=== PATIENT | male | born 1970 | race Caucasian/White ===

== ENCOUNTER 2018-01-14 22:43 | Emergency (ER) | payer MEDICAID, SELFPAY ==
[2018-01-14 22:50] VITALS: BP 142/74; PULSE 86; RESP 16; TEMP 36.5; O2SAT 98
--- NOTE | 2018-01-14 22:57 | W.ED.GENAD ---
Discharge Plan Disposition Patient Disposition: HOME Condition: Stable Discharge Details Chief Complaint: GenMedical Clinical Impression: Medication requested Primary Care Provider: Arianne Sanchez ED Provider: Provider,Temporary Home Meds and New Rx's Prescriptions: Continue ondansetron [Zofran ODT] 4 MG tablet,disintegrating 4 mg PO Q8H PRN MDD 3 Qty: 30 RF: 0 fluticasone [Flonase Allergy Relief] 50 mcg/actuation [place],Suspension 1 spray INTRANASAL BID RF: 0 cefpodoxime 200 mg Tablet 200 mg PO BID Qty: 5 RF: 0 azithromycin 250 mg Tablet 250 mg PO DAILY Qty: 2 RF: 0 Discharge Instructions Additional Instructions: you should follow up with your primary care office within a week. You should discuss having testing done for COPD, chronic obstructive pulmonary disease, given your smoking history if you feel shortness of breath use your inhaler. If you have worsening shortness of breath despite this return to the emergency department. Medical Decision Making 47 yo male who states he has no chronic medical problems comes in with assistance in filling medications. He was doing work down in [employer] this week and became ill, was diagnosed with a pneumonia and admitted for 2 nights starting this past night and discharged this morning. He was given prescriptions for cefpodoxime and azithromycin and tried to fill them at [facility] earlier today in this area but was told because it was a [employer] script they couldn't fill it so he came here. He has mild wheezing at the apices, and has a 35 year smoking hx so I suspect he likely has copd. I am going to give him an inhaler for albuterol and a dose of dexamethasone. I will give him a dose of the azithro and cefpodxime, and 3 more days of the meds as prescribed. Return precautions given. Will have him f/u with his pcp's office within a week and have eval for copd Differential Diagnosis pna, copd HPI General Mode of arrival: ambulatory. Date/Time Provider Initiated Documentation: 01/14/18 22:44. Limitations to Documentation: no limitations. Information obtained by: patient. History of Present Illness 47 year old M presents to the emergency department with the chief complaint of cough, described as mild, with intensity rated at 3. Quality is described as aching, Patient reports no radiation. Patient started experiencing this day(s) (3) and it has been constant. No relieving factors improve symptom(s), No exacerbating factors reported . Related Data Home Medications Medication Instructions Recorded Confirmed ondansetron [Zofran ODT] 4 mg PO Q8H PRN #30 tab.sl MDD 3 12/20/16 01/14/18 azithromycin 250 mg PO DAILY #2 tab 01/14/18 cefpodoxime 200 mg PO BID #5 tab 01/14/18 fluticasone [Flonase Allergy 1 spray INTRANASAL BID 01/14/18 01/14/18 Relief] Previous Rx's Medication Instructions Recorded azithromycin 250 mg PO DAILY #2 tab 01/14/18 cefpodoxime 200 mg PO BID #5 tab 01/14/18 Allergies Allergy/AdvReac Type Severity Reaction Status Date / Time codeine AdvReac Unknown GI, Unverified 01/14/18 22:59 dizziness oxycodone AdvReac Unknown tight Unverified 01/14/18 22:59 chest tramadol AdvReac Unknown Dizziness Unverified 01/14/18 22:59 Review of Systems Review of Systems All systems reviewed & are unremarkable except as noted in HPI and below Constitutional Denies chills and Denies weakness Eyes Denies loss of vision ENT Denies change in voice Cardiovascular Denies chest pain Respiratory Reports cough Gastrointestinal Denies abdominal pain, Denies nausea and Denies vomiting Genitourinary Denies dysuria Musculoskeletal Denies joint swelling Integumentary/Breasts Denies rash Neurologic Denies loss of vision and Denies weakness Psychiatric Denies depression Endocrine Denies cold intolerance and Denies heat intolerance Allergic/Immunologic Reports urticaria PFSH Family History Mother No problems noted. Father Substance abuse Grandfather Substance abuse Grandmother Diabetes Cerebrovascular accident Maternal Uncle Diabetes Maternal Aunt Diabetes Myocardial infarction Other Heart disease Social History Smoking/Tobacco Use Status: Current every day Surgical History Foraminectomy Spinal cord stimulator (12/12/14) steroid injection L5-S1 (08/13/14) Exam Const General: no acute distress Orientation: alert HENMT Head: normal to inspection Ears: external ears normal General nose exam: external nose normal Mouth: moist mucous membranes Eyes General: appearance normal, both eyes and all related structures Neck Neck: normal visual inspection Resp Effort & Inspection: normal respiratory effort, able to speak in complete sentences and audible wheezes (mild expiratory wheezing at the apices bilaterally) Cardio Rate: regular rate Skin General skin exam: no rashes or lesions noted Neuro General: alert and oriented x3 Extrem General: normal to inspection Psych Mental Status: mental status grossly normal
[2018-01-14 23:03] VITALS: RESP 16
[2018-01-14] MEDS: Inhaler, Assist Device 1 EACH MC (23:23)
[2018-01-14] MEDS: Cefpodoxime 200 MG TAB PO (23:23)
[2018-01-14] MEDS: Azithromycin 250 MG TAB PO (23:23)
[2018-01-14] MEDS: Albuterol HFA 8 GM 60 PUFF INH IH (23:23)
[2018-01-14] MEDS: Dexamethasone 10 MG/ML VIAL PO (23:23)
--- NOTE | 2018-01-16 08:33 | CMPROGNOTE_ITS ---
Care Management Progress Note 01/16/18-Pt seen on 01/14/[address] Kendell Juarez with having troubles filling his RX post hospital admission in [facility]. Pt has found to have wheezes. Request f/u within one week faxed to [facility] as Dr. Arianne Sanchez is Pt's PCP.
== END 2018-01-14 23:21 | disposition home or self-care (01) ==
PROVIDERS: PCP Internal Medicine; Visit Provider Emergency Medicine
DX: J18.9 Pneumonia, unspecified organism (principal); F17.210 Nicotine dependence, cigarettes, uncomplicated
CPT/HCPCS: 99283; J1100

== ENCOUNTER 2018-03-28 00:48 | Outpatient (CLI) | payer MEDICAID, SELFPAY ==
--- NOTE | 2018-03-28 09:08 | DI.RAD_ITS ---
SYMPTOM/DIAGNOSIS: F/U ABNORMAL CHEST X-RAY IN [place]. J18.9 PNEUMONIA CHEST X-RAY: PA and lateral. Comparison examination is 08/09/15. The prior examination from [facility] dated 01/12/18 is not available at this time for direct comparison. Should they become available an addendum will be issued. FINDINGS: The heart is normal in size. The lungs are clear. The mediastinal structures and pleura appear intact. CONCLUSION: Normal chest.
== END 2018-03-28 01:08 ==
PROVIDERS: PCP Internal Medicine; Visit Provider Nurse Practitioner Adult Health
DX: J18.9 Pneumonia, unspecified organism (principal)
CPT/HCPCS: 71046

== ENCOUNTER 2018-11-08 13:30 | Outpatient (CLI) | payer MEDICAID, SELFPAY ==
--- NOTE | 2018-11-08 14:00 | DI.RAD_ITS ---
SYMPTOMS/DIAGNOSIS: COUGH X 3 WKS, NOT BETTER, ? PNEUMONIA VS OTHER, F17.200, NICOTINE DEPENDENCE PA AND LATERAL CHEST: The heart is normal in size. The lungs are clear. The mediastinal structures and pleura appear intact. CONCLUSION: Normal chest. No evidence of acute cardiopulmonary disease.
== END 2018-11-08 13:50 ==
PROVIDERS: PCP Internal Medicine; Visit Provider Nurse Practitioner Family
DX: R05 Cough (principal); F17.200 Nicotine dependence, unspecified, uncomplicated
CPT/HCPCS: 71046

== ENCOUNTER 2019-03-02 08:38 | Day surgery (SDC) | payer SELFPAY ==
[2019-03-02 08:51] VITALS: BP 132/78; PULSE 75; RESP 16; TEMP 36.5; O2SAT 96
--- NOTE | 2019-03-02 08:54 | W.PM.HP.N ---
Date of service: 03/02/19 Time of Service: 08:54 Assessment and Plan Assessment and plan (1) Colon cancer screening: Status: Acute Assessment and plan: I advised colonoscopy. The procedure was described including the risks of perforation with need for surgery or bleeding. Prep instructions discussed. Patient agrees to proceed. History of Present Illness Narrative: 48 y/o male with a history of back pain presents for his first colonoscopy screening pre-op. He denies a family history of colon cancer. He denies any changes in bowel habits reporting intermittent constipation. Denies bloody or black tarry stools, abdominal pain, diarrhea. He denies constitutional symptoms. Denies use of marijuana or any other recreational or illegal drugs. He denies chest pain, palpitations, dyspnea or dyspnea with exertion. 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 He denies prior history or family history of adverse reactions or complications with anesthesia. He denies having any implanted metal in his body. Review of Systems All systems reviewed & are unremarkable except as noted in HPI and below PFSH Social History Smoking/Tobacco Use Status: Current every day Tobacco Type: cigarettes Tobacco: How many years used: 33 Quit status: not considering quitting Alcohol Intake: current Alcohol Intake frequency: holidays/special occasions only Drug use: Never Substance use type: does not use Adopted: No Housing: house Number of Children: 2 number of grandchildren: 3 Communication Needs: Corrective Lenses Do you need help understanding health information?: Never current occupation: self employed - cleaning business What type of physical activity do you participate in: none Seatbelt use: always Drive intox or ride w/intox local hazmat driver: No Water heater temp set <120 deg: Yes Working smoke detector in home: Yes Fire extinguisher in home: Yes Carbon monox detector in home: Yes Do you feel safe at home: Yes Do you feel safe in your relationship?: Yes Meds Home Medications and Allergies Home Medications Medication Instructions Recorded Confirmed Type ondansetron 8 mg disintegrating 8 mg PO Q8H #20 tab 11/21/18 02/28/19 Rx tablet Allergies Allergy/AdvReac Type Severity Reaction Status Date / Time oxycodone AdvReac Unknown tight Verified 03/02/19 08:50 chest Exam Const General: healthy appearing and not in acute distress Nutritional Appearance: well nourished Orientation: oriented x3 [facility] Head: normal to inspection Eyes Sclera: sclerae normal Pupils: PERRL Neck Neck: no lymphadenopathy Thyroid: thyroid normal Carotids: no bruits Resp Effort & Inspection: normal respiratory effort Auscultation: clear to auscultation bilaterally and no wheezes Cardio Rate: regular rate Rhythm: regular rhythm GI Inspection: non-distended Palpation: soft, no hepatosplenomegaly, no hernias and nontender Skin General skin exam: no rashes or lesions noted Neuro General: alert Cognition: normal cognition Extrem General: normal to inspection Psych Affect: normal affect Attitude: cooperative Results Last Vital Signs Temp 97.7 F 03/02/19 08:51 Pulse 75 03/02/19 08:51 Resp 16 03/02/19 08:51 BP 132/78 03/02/19 08:51 Pulse Ox 96 03/02/19 08:51
--- NOTE | 2019-03-02 08:56 | W.PM.DSUDISC ---
Discharge Plan Disposition Patient Disposition: HOME Condition: Good Discharge Details Reason For Visit: Colonoscopy Attending Provider: Carlie Briscoe Primary Care Provider: Arianne Sanchez Home Meds and New Rx's Prescriptions: No Action ondansetron 8 mg tablet,disintegrating 8 mg PO Q8H Qty: 20 RF: 0 Discharge Instructions Additional Instructions: Findings: Two small polyps were removed. My office will contact you with biopsy results. Follow up: Plan for a colonoscopy in 5 years. Please call if you develop: fevers >101.5 Nausea or Vomiting Abdominal pain that is not transient DAY SURGERY UNIT POST COLONOSCOPY INSTRUCTIONS 1. Because there will be medication in your system for the next 24 hours, you may feel a little sleepy. Your coordination will be affected. Therefore: a. Do not drive or operate dangerous equipment for 24 hours. b. Do not drink alcohol beverages for 24 hours (not even beer). c. Plan to go home and rest for the day. 2. Generally there are no restrictions on your activity after a day or so has gone by, but you may feel a bit fatigued for a few days. 3 After you arrive home you may have a light meal and return to a normal diet as you can tolerate it without feeling sick to your stomach. 4. After surgery, you may feel pain or discomfort. This should be only transient, but if it persists please contact your doctor. 5. If there are any questions regarding the findings of your procedure, please feel free to contact your doctor. 6. If you are unable to contact your doctor with a problem, contact the hospital at [phone]. 7. Continue all your regular medications unless directed otherwise. I understand the above instructions and have no questions. Signature of Patient or Responsible Adult Escort Date/Time Name of Responsible Adult Escort Signature of Nurse Date/Time Activity:: Activity as Tolerated Diet:: As Tolerated Discharge Orders Discharge Orders: Discharge Order (Routine); Ordered 03/02/19 Ordered By: Carlie Briscoe DS: Diagnosis Discharge Diagnosis (1) Colon cancer screening: Status: Acute (2) Colon polyps: Status: Acute
[2019-03-02] MEDS: Lactated Ringers 1,000 ML 80 ML IV (09:11)
--- NOTE | 2019-03-02 10:00 | BOWEL_PTH ---
PATIENT: Adam Montgomery LOC: [facility] U#:[id number] AGE/SX: 48/M ROOM: RE03/02/[address]: Carlie Briscoe MD : 1970 BED: DIS: 03/02/2019 SPEC #: [id number] RECD: 03/02/19 12:51 STATUS: SHER REQ #: [id number] AVNESSA: 03/02/19 10:[address]: Carlie Briscoe DEPT: Surgical Specimen RECD BY: Gena Stroud ENTERED: 03/02/19 12:51 SP TYPE: Bowel OTHR DR: Arianne Sanchez MD Tissues: 1 - BIOPSY BOWEL Procedures: GROSS AND MICRO LEVEL 4 Comments: [id number]
[2019-03-02 10:42] VITALS: BP 112/70; PULSE 63; RESP 16; TEMP 36.3; O2SAT 95
--- NOTE | 2019-03-02 11:31 | COLE_ITS ---
DATE OF PROCEDURE: March 02, 2019 PREOPERATIVE DIAGNOSIS: Screening. POSTOPERATIVE DIAGNOSIS: Colon polyps. PROCEDURE: Colonoscopy with cold forceps polypectomy. SURGEON: Carlie Briscoe M.D. ANESTHESIA: General. INDICATIONS: This is a 48-year-old man who presents for his first screening colonoscopy. He is asymptomatic and has no family history of colon cancer. He does note occasional symptoms from hemorrhoids. PROCEDURE: He was placed in the left Pack position. Propofol was titrated to sedation. Digital rectal examination revealed no abnormalities. The scope was advanced to the cecum without difficulty. The ileocecal valve and appendiceal orifice were clearly identified. His prep was excellent. The scope was slowly withdrawn with no abnormalities seen within the ascending, transverse or descending colon. In the sigmoid region he had two diminutive polyps near each other that were removed with the cold forceps and sent together in the same specimen container. The remainder of the sigmoid colon and rectum were normal, including on retroflex view. He tolerated the procedure well and was stable to recovery. If the polyps are adenomatous he will need a follow-up colonoscopy again in five years. cc: Arianne Sanchez M.D.
== END 2019-03-02 11:11 | disposition home or self-care (01) ==
PROVIDERS: PCP Internal Medicine; Visit Provider Surgery
PROC: 0DJD8ZZ Inspection of Lower Intestinal Tract, Via Natural or Artificial Opening Endoscopic (ICD-10-PCS; CPT 45378; principal; 2019-03-02 09:45)
DX: Z12.11 Encounter for screening for malignant neoplasm of colon (principal); D12.5 Benign neoplasm of sigmoid colon
CPT/HCPCS: 45380; 88305; NC

== ENCOUNTER 2021-09-19 23:04 | Emergency (ER) | payer MEDICAID, SELFPAY ==
--- NOTE | 2021-09-19 23:00 | DI.RAD_ITS ---
Exam(s) XR KNEE LT 3V AP,LAT,J[place]SE[place] EXAM: XR KNEE LT 3V AP,LAT,[place] CLINICAL HISTORY: left knee pain, mild proximal swelling. TECHNIQUE: 2D digital imaging was performed of the left knee. Three images were obtained. AP, late ral and PA tunnel views were obtained. COMPARISON: CR XR CHEST 2V PA LATERAL from 11/08/2018 FINDINGS: BONES: No acute fracture is present. No bony destructive lesion is seen. JOINTS: The knee is normally aligned. No joint effusion is seen. SOFT TISSUE: Normal. IMPRESSION: Normal radiographs of the left knee. DATA REPOSITORY: RADIATION DOSE DELIVERED:
[2021-09-19 23:10] VITALS: BP 204/84; PULSE 66; RESP 18; TEMP 36.7; O2SAT 98
--- NOTE | 2021-09-19 23:15 | ED.GENADUL_ITS ---
Discharge Plan Disposition Patient Disposition: HOME Condition: Good Discharge Details Clinical Impression: Acute knee pain, Suprapatellar bursitis Primary Care Provider: Arianne Sanchez ED Provider: Tony Schrader Home Meds and New Rx's Prescriptions: No Action No Known Home Meds Discharge Instructions Instructions: Knee Bursitis (ED) Additional Instructions: At this time your x-ray shows no evidence of fracture. Please continue to take Tylenol and Motrin as needed for pain. Keep the knee wrapped in an Conrad wrap to help diminish the swelling. Ice the knee frequently throughout the day. Please decrease your weightbearing activity on the knee by using her crutches over the next week. Please apply the topical NSAID cream Voltaren gel to the area. This can be purchased [id number]. Apply it 2-3 times per day. If you have persistent pain after 1 to 2 weeks of this therapy, you may need further evaluation with an MRI. If you notice any worsening of your symptoms, or any new symptoms such as vomiting, diarrhea, fever, chills, shortness of breath, chest pain, numbness, weakness, or fainting , please return immediately to the emergency department for reevaluation. Please follow up with your primary care provider as soon as possible for reassessment and reevaluation. As always, it was a pleasure participating in your medical care today. Referrals: Arianne Sanchez MD [Primary Care Provider] - Discharge Data Discharge Date/Time-TO BE ENTERED AT DEPARTURE: 09/20/21 00:23 Medical Decision Making Pleasant 50-year-old male with a past medical history of hypertension presents today for left knee pain. Symptoms have been present for the last 1 to 2 weeks. He has noted some mild swelling over the last week. He has been using a knee brace intermittently without any significant improvement. Patient states that there is no pain when sitting or lying, but when he excessively bends the knee or bears weight he develops mild pain, particularly on the suprapatellar and lateral aspect. He denies any numbness or tingling. He does admit to similar symptoms in the past on the right knee. He denies any previous injury. No complaints at this time. Exam demonstrates mild swelling over the suprapatellar region. No redness or suggest cellulitis or infection. Edema and swelling is minimal. Symptoms appearing consistent with septic arthritis. No edema of the mid to lower knee. No calf tenderness or posterior popliteal tenderness. Differential is highest for suprapatellar bursitis. We will get x-ray to evaluate for evidence of osseous injury. Will monitor closely and reassess. X-ray negative for any acute findings. Suspect mild bursitis. Will recommend NSAIDs, Conrad wrap, decreased weightbearing, and topical Voltaren gel for treatment. Recommend further MRI or imaging if symptoms persist. I have extensively reviewed the treatment plan and discharge instructions with the patient. I have addressed all patient concerns at this time. The patient was made aware of what symptoms to monitor for that would warrant a return to the emergency department. Discussed the plan with the patient, they demonstrate verbal understanding and agreement with our assessment and plan at this time. The documentation in this chart was dictated using [employer] dictation software. Please excuse any dictation errors. FINDINGS: Bones/joints: No acute fracture or subluxation. Soft tissues: No significant joint effusion. IMPRESSION: No acute bony pathology. Thank you for allowing us to participate in the care of your patient. Dictated and Authenticated by: Lizzie Garcia MD 09/19/2021 11:39 PM Eastern Time ([place] & [place]) HPI General Date/Time Provider Initiated Documentation: 09/19/21 23:05 . HPI Narrative: Pleasant 50-year-old male with a past medical history of hypertension presents today for left knee pain. Symptoms have been present for the last 1 to 2 weeks. He has noted some mild swelling over the last week. He has been using a knee brace intermittently without any significant improvement. Patient states that there is no pain when sitting or lying, but when he excessively bends the knee or bears weight he develops mild pain, particularly on the suprapatellar and lateral aspect. He denies any numbness or tingling. He does admit to similar symptoms in the past on the right knee. He denies any previous injury. No complaints at this time. Related Data Home Medications Medication Instructions Recorded Confirmed Unknown [No Known Home Meds] 09/19/21 09/19/21 Allergies Allergy/AdvReac Type Severity Reaction Status Date / Time oxycodone AdvReac Unknown tight Verified 09/19/21 23:14 chest General Stated Complaint: Orthopedic WANDA: 4 Review of Systems All systems reviewed & are unremarkable except as noted in HPI and below PFSH All Active Problems (Updated 09/20/21 @ 00:03 by Tony Schrader DO) Acute knee pain (Acute) Suprapatellar bursitis (Acute) Shingles (Acute 10/24/19) Colon polyps (Acute) Backache, unspecified (Chronic 09/06/12) Insomnia (Chronic 06/22/13) Post laminectomy syndrome (Chronic 09/16/15) Tobacco use disorder (Chronic 09/06/12) Medical History Chronic pain syndrome (09/06/12) Chronic prescription opiate use (12/03/14) Colon cancer screening Constipation due to opioid therapy (12/03/14) Opioid use agreement exists (07/16/15) Surgical History Foraminectomy H/O colonoscopy 03/13: Tubular adenoma. Spinal cord stimulator (12/12/14) Danie Malin MD REMOVED steroid injection L5-S1 (08/13/14) [facility] Family History Mother No problems noted. Father Substance abuse Grandfather Substance abuse Grandmother Diabetes Stroke Paternal Aunt Diabetes Other Heart disease Social History Smoking/Tobacco Use Status: Current every day Tobacco Type: cigarettes Tobacco: How many years used: 33 Quit status: not considering quitting Smoking risk assessment performed?: Yes Alcohol Intake: current Alcohol Intake frequency: holidays/special occasions only Drug use: Never Substance use type: does not use Adopted: No Housing: house Number of Children: 2 number of grandchildren: 3 Communication Needs: Corrective Lenses Do you need help understanding health information?: Never current occupation: self employed - cleaning business What type of physical activity do you participate in: none Seatbelt use: always Drive intox or ride w/intox stock driver: No Water heater temp set <120 deg: Yes Working smoke detector in home: Yes Fire extinguisher in home: Yes Carbon monox detector in home: Yes Do you feel safe at home: Yes Do you feel safe in your relationship?: Yes Exam Narrative Exam Narrative: 1.Const: Well-nourished, Well-developed, appearing stated age 2.Eyes: PERRL, no conjunctival injection, and symmetrical lids. 3.ENT: Atraumatic external nose and ears. Moist MM. Neck: Symmetric, trachea midline, No thyromegaly. 4.CVS: +S1/S2, No murmurs or gallops. Peripheral pulses 2+ and equal in all extremities. Brisk capillary refill in all extremities. 5.RESP: Unlabored respiratory effort. Clear to auscultation bilaterally. No wheezes rales or rhonchi 6.GI: Soft, Nontender/Nondistended, No hepatosplenomegaly. No guarding or rebound. 7.MSK: Normocephalic/Atraumatic, Extremities w/o deformity or ttp No cyanosis or clubbing, Normal movement of all extremities Left knee is stable to varus, valgus, and anterior drawer stress. No deformity. Patellar grind test is negative. Joaquina test is negative for pain. Patient is able to walk without difficulty but does have some mild pain. Minimal edema is present in the suprapatellar region. No edema in the infrapatellar aspect. No redness or warmth to suggest infection. No ttp to the patella, tibial plateau, or fibular head. 8.Skin: Warm, Dry. No rashes or lesions. No evidence of cellulitis 9.Neuro: advertising coordinator II-XII grossly intact. Sensation grossly intact, no focal neurologic deficits. 10.Psych: (AAO) x3. Appropriate mood and affect Course Vital Signs Vital signs: Vital Signs Temperature 36.7 C 09/19/21 23:10 Pulse 66 09/19/21 23:10 Respiratory Rate 18 09/19/21 23:10 Blood Pressure 204/84 H 09/19/21 23:10 Pulse Oximetry 98 09/19/21 23:10 Temperature 36.7 C 09/19/21 23:10 Temperature Source Skin 09/19/21 23:10 Pulse 66 09/19/21 23:10 Respiratory Rate 18 09/19/21 23:10 Blood Pressure 204/84 H 09/19/21 23:10 Pulse Oximetry 98 09/19/21 23:10 Pain Level 4 09/19/21 23:10
--- NOTE | 2021-09-19 23:40 | DI.VRAD_ITS ---
PROCEDURE INFORMATION: Exam: XR Left Knee Exam date and time: 09/19/2021 23:24 Age: 50 years old Clinical indication: Other: Left knee pain mild proximal swelling TECHNIQUE: Imaging protocol: XR Left knee. Views: 3 views. COMPARISON: No relevant prior studies available. FINDINGS: Bones/joints: No acute fracture or subluxation. Soft tissues: No significant joint effusion. IMPRESSION: No acute bony pathology. Dictated and Authenticated by: Lizzie Garcia MD. Ordering:KELYL Jimenez MD
[2021-09-20 00:12] VITALS: BP 157/86; PULSE 65; RESP 16; O2SAT 100
== END 2021-09-20 00:23 | disposition home or self-care (01) ==
PROVIDERS: Emergency Provider Student in an Organized Health Care Education/Training Program; PCP Internal Medicine
DX: M25.562 Pain in left knee (principal); M71.562 Other bursitis, not elsewhere classified, left knee
CPT/HCPCS: 73562; 99283

== ENCOUNTER 2023-11-26 19:54 | Emergency (ER) | payer MEDICAID, SELFPAY ==
[2023-11-26] VITALS (14 sets, daily range): BP systolic 151–185; BP diastolic 68–128; PULSE 62–77; RESP 12–16; TEMP 36.3; O2SAT 93–97
--- NOTE | 2023-11-26 20:30 | DI.CT_ITS ---
Exam(s) CT ABDOMEN PELVIS W EXAM: CT ABDOMEN PELVIS W CLINICAL HISTORY: flank pain, left. TECHNIQUE: Imaging Protocol: Axial computed tomography images with coronal and sagittal reformatted images were created and reviewed CONTRAST MATERIAL: Intravenous: Omnipaque 350 Contrast volume:100 ml Oral: no COMPARISON: No exams were available for comparison FINDINGS: ABDOMEN and PELVIS: Lung Bases: Mild respiratory motion. Multifocal areas of air trapping. No focal consolidation or ef fusion. Liver: Normal density. Simple cyst superior right lobe. No follow-up recommended. Liver mildly enl arged no suspicious mass. Gallbladder and biliary tract: Somewhat contracted. No wall thickening no radiodense calculus. No b iliary dilation. Pancreas: Normal density. No abnormal calcifications or inflammatory process. No evidence of mass. Spleen: Normal. Kidneys: Normal size, contour and axis. No radiodense stones. No obstructive uropathy. No suspicious masses seen. Adrenal glands: No masses seen. Vasculature: Abdominal aorta non-dilated. Moderate atherosclerotic changes. No significant stenos is volume celiac axis, SMA all renal arteries. Soft tissues: Tiny fat containing umbilical hernia. Tiny amount of fat in the left inguinal canal. Bladder: No gross wall thickening. No calculi.No focal mass. Bowel: No obstruction. No bowel wall thickening. Appendix normal. Peritoneal cavity: No ascites. No focal collection. No mesenteric inflammatory response. Bones: Unremarkable for age. Reproductive organs: Unremarkable. Lymph nodes: No pathologically enlarged lymph nodes. IMPRESSION:: No acute abnormality in the abdomen or pelvis. RADIATION DOSE DELIVERED: Total DLP DATA REPOSITORY: All CT scans at this facility are submitted to the National Radiology Data Registry (NRDR) Dose Index Registry (DIR) with the [employer] ([employer]). RADIATION OPTIMIZATION: All CT scans at this facility use at least one of these dose optimization te chniques: automated exposure control; mA and/or kV adjustment per patient size (includes targeted exa ms where dose is matched to clinical indication); or iterative reconstruction.
[2023-11-26 20:56] LABS: Abs Immature Grans 0.03 10^3/uL (0.0-0.06); Absolute Basophil Count 0.06 10^3/uL (0.0-0.2); Absolute Eosinophil Count 0.17 10^3/uL (0.0-0.7); Absolute Lymphocyte Count 2.17 10^3/uL (1.2-3.4); Absolute Monocyte Count 0.77 10^3/uL (0.1-0.8); Absolute Neutrophil Count 5.95 10^3/uL (1.2-6.7); Basophils % 0.7 %; Eosinophils % 1.9 %; HCT 43.8 % (40.0-50.0); Immature Grans % 0.3 %; Lymphocytes % 23.7 %; MCH 31.4 pg (27.0-33.0); MCHC 34.2 % (32.0-36.0); MCV 92 fL (80-95); MPV 9.1 fL (8.0-11.0); Monocytes % 8.4 %; Platelet Count 253 10^3/uL (130-400); RBC 4.77 10^6/uL (4.36-5.78); RDW 12.3 % (11.8-14.1); RDW-SD 41.8 fL; WBC 9.15 10^3/uL (4.4-10.8)
[2023-11-26] MEDS: Normal Saline - Diluent 50 ML VIAL IJ (21:05)
[2023-11-26] MEDS: Omnipaque 350 MG/ML 100 ML BTL IJ (21:10)
[2023-11-26 21:11] LABS: ALT 28 U/L (16-63); AST 21 U/L (15-37); Albumin 3.5 g/dL (3.4-5.0); Alkaline Phosphatase 71 U/L (46-116); Anion Gap 7.4 mmol/L (3-11); BUN 17 mg/dL (7-18); Bilirubin, Total 0.37 mg/dL (0.2-1.0); CO2 28.6 mmol/L (21.0-32.0); Calcium 8.6 mg/dL (8.5-10.1); Chloride 104 mmol/L (98-107); Estimated GFR 88.88 (mL/min/1.73m2); Glucose 103 mg/dL (74-106); Sodium 140 mmol/L (136-145); Total Protein 7.1 g/dL (6.4-8.2)
[2023-11-26 21:12] LABS: Lipase 40 U/L (16-77)
--- NOTE | 2023-11-26 21:19 | DI.RAD_ITS ---
Exam(s) XR CHEST 2V PA LATERAL EXAM: XR CHEST 2V PA LATERAL CLINICAL HISTORY: flank pain, wheezing TECHNIQUE: 2D digital imaging was performed. Two views. COMPARISON: CR XR CHEST 2V PA LATERAL from 03/28/2018 CR XR CHEST 2V PA LATERAL from 11/08/[address] ABDOMEN PELVIS W from 11/26/2023 FINDINGS: HEART: Normal size. Aorta: Not dilated. PULMONARY VASCULATURE: Normal. MEDIASTINUM: Unremarkable. LUNGS: No focal infiltrate. PLEURAL SPACE: No pleural effusion or pneumothorax. BONE:Unremarkable for age. SOFT TISSUES: Unremarkable. IMPRESSION: No acute abnormality. DATA REPOSITORY: RADIATION DOSE DELIVERED:
[2023-11-26 21:53] LABS: Bilirubin Negative (Negative); Blood Trace-intact (Negative); Clarity Sl Cloudy (Clear); Glucose Negative (Negative); Ketones Negative (Negative); Leukocyte Esterase Negative (Negative); Nitrite Negative (Negative); Specific Gravity >= 1.030 (1.005-1.025); Urobilinogen 0.2 mg/dL (Up to 0.2)
[2023-11-26 22:03] LABS: Bacteria Few HPF (Negative); C & S Indicated? No; Casts Negative LPF (Negative); Crystals Few Amorphous HPF (Negative); Epithelial Cells Negative HPF (Negative); Mucus Negative (Negative); RBC 0-2 HPF (0-2); WBC Negative HPF (0-5)
--- NOTE | 2023-11-26 22:39 | DI.VRAD_ITS ---
PROCEDURE INFORMATION: Exam: XR Chest Exam date and time: 11/26/2023 9:17 PM Age: 53 years old Clinical indication: Patient HX: Flank pain, wheezing TECHNIQUE: Imaging protocol: Radiologic exam of the chest. Views: 2 views. COMPARISON: CR XR CHEST 2V PA LATERAL 11/08/2018 2:27 PM FINDINGS: Lungs: There is perihilar interstitial prominence. There is peribronchial thickening There are perihilar streaky densities present. These findings are most consistent with bronchitis. No evidence of lobar pneumonia. The pulmonary vasculature is normal. Pleural spaces: There is no evidence of pneumothorax. There are no pleural effusions present. Heart/Mediastinum: The cardiac silhouette is within normal limits. The mediastinum is normal. Bones/joints: The spine, sternum, ribs, and pectoral girdles are normal. Soft tissues: There are no soft tissue masses or calcifications. IMPRESSION: 1. Findings most consistant with bronchitis. 2. No evidence of lobar pneumonia. Dictated and Authenticated by: Beck Lua MD. Ordering:FABIO Avery MD
--- NOTE | 2023-11-26 23:00 | DI.VRAD_ITS ---
PROCEDURE INFORMATION: Exam: CT Abdomen And Pelvis With Contrast Exam date and time: 11/26/2023 9:02 PM Age: 53 years old Clinical indication: Other: Flank pain, left TECHNIQUE: Imaging protocol: Computed tomography of the abdomen and pelvis with contrast. Contrast material: 350; Contrast volume: 100 ml; Contrast route: INTRAVENOUS (IV); COMPARISON: CR XR CHEST 2V PA LATERAL 11/08/2018 2:27 PM FINDINGS: Lungs: Scattered patchy ground-glass opacities within the lungs. These findings are nonspecific and may represent hypoventilatory change,edema, hemorrhage, or an infectious/inflammatory process (acute or chronic). Pleural spaces: There is no evidence of pneumothorax. There are no pleural effusions present. Heart: The cardiac structures are normal. Coronary arteries: No evidence of significant coronary artery atherosclerotic plaque or calcification. Liver: Simple appearing cysts present within the right liver lobe measuring 18 mm. Smaller tiny cyst present within the right and left liver lobe. There is no evidence of intrahepatic or extrahepatic biliary ductal dilation. Gallbladder and biliary ducts: The gallbladder is contracted but otherwise normal. Pancreas: The pancreas is normal. Spleen: The spleen is normal. Adrenal glands: The adrenal glands are normal. Kidneys and ureters: The kidneys are normal. The ureters are normal caliber and follow a normal caliber and course. Stomach and bowel: The stomach is distended with large amount of ingested material. There are a few fluid-filled loops of small bowel with scattered air-fluid levels. No significant bowel wall thickening or inflammatory changes. No evidence of obstruction. Consider early enteritis. There is asymmetrical thickening of the rectal wall, mass cannot be excluded. There is moderate increased right-sided colonic fecal content. The colon is nondilated. These findings suggest a moderate degree of constipation. Clinical correlation recommended. Appendix: A normal appendix is identified. There is no evidence of distention or periappendiceal inflammation to suggest appendicitis. Intraperitoneal space: There is no free intraperitoneal air. There is no evidence of free intraperitoneal or pelvic fluid. Vasculature: The aorta demonstrates moderate atherosclerotic calcification. The arterial peripheral vasculature demonstrates diffuse mild atherosclerotic calcification. The inferior vena cava is unremarkable. The portal, mesenteric and splenic veins are patent. Lymph nodes: There is no evidence of lymphadenopathy. Urinary bladder: There is nonspecific bladder wall thickening. This may be related to incomplete bladder filling. Reproductive: The prostate gland demonstrates calcification and mild nonspecific enlargement. The seminal vesicles are normal. Bones/joints: Unremarkable. No acute fracture. Soft tissues: Small left inguinal hernia containing only fat. IMPRESSION: 1. Scattered patchy ground-glass opacities within the lungs. These findings are nonspecific and may represent hypoventilatory change,edema, hemorrhage, or an infectious/inflammatory process (acute or chronic). There is heterogeneous attenuation of the pulmonary parenchyma, consistent with air trapping from underlying small airways disease. 2. There is asymmetrical thickening of the rectal wall, mass cannot be excluded. 3. There are a few fluid-filled loops of small bowel with scattered air-fluid levels. No significant bowel wall thickening or inflammatory changes. No evidence of obstruction. Consider early enteritis. 4. There is moderate increased right-sided colonic fecal content. The colon is mildly distended. These findings suggest a moderate degree of constipation. Clinical correlation recommended. Dictated and Authenticated by: Beck Lua MD. Ordering:FABIO Avery MD
[2023-11-26] MEDS: Orphenadrine 60 MG/2 ML VIAL 30 MG IVP (23:20)
--- NOTE | 2023-11-26 23:21 | W.ED.GENAD ---
Discharge Plan Disposition Patient Disposition: Home Condition: Stable Discharge Details Clinical Impression: Abdominal pain Primary Care Provider: None,None ED Provider: Gena Flower Home Meds and New Rx's Prescriptions: New senna 8.6 mg capsule 8.6 mg PO DAILY PRNQty: 10 0RF polyethylene glycol 3350 [Miralax] 17 gram powder in packet 17 g PO DAILY Qty: 14 0RF orphenadrine citrate 100 mg tablet extended release 100 mg PO BID Qty: 10 0RF Discharge Instructions Instructions: Constipation in adults Additional Instructions: Take senna and MiraLAX as prescribed as you have increased stool volume Follow-up with general surgery as you will need another colonoscopy, you have an area near your rectum that we will need further assessment as this may be inflammation or mass It is unlikely to be contributing to today's symptoms Please follow-up with your doctor next week for persistent pain You may take the Norflex as needed for back pain return earlier should you have new or worsening complaints HPI General Date/Time Provider Initiated Documentation: 11/26/23 20:06. HPI Narrative: This 53-year-old male past medical history of back pain, hypertension presents with report of left flank pain which started approximately a week ago and has been worse in the past several days. Denies any strength or sensation changes to his extremities or significant change in bowel or bladder. He denies any groin numbness. He states sometimes he feels like he is unable to empty completely. Denies blood in urine or known trauma. Related Data Home Medications ?Medication ?Instructions ?Recorded ?Confirmed orphenadrine citrate 100 mg 100 mg PO BID #10 tabs 11/26/23 tablet,extended release polyethylene glycol 3350 17 gram 17 g PO DAILY #14 ea 11/26/23 oral powder packet (Miralax) sennosides 8.6 mg capsule (senna) 8.6 mg PO DAILY PRN #10 caps 11/26/23 Previous Rx's ?Medication ?Instructions ?Recorded orphenadrine citrate 100 mg 100 mg PO BID #10 tabs 11/26/23 tablet,extended release polyethylene glycol 3350 17 gram 17 g PO DAILY #14 ea 11/26/23 oral powder packet (Miralax) sennosides 8.6 mg capsule (senna) 8.6 mg PO DAILY PRN #10 caps 11/26/23 Allergies Allergy/AdvReac Type Severity Reaction Status Date / Time cyclobenzaprine AdvReac Intermediate Other (See Verified 11/26/23 20:02 Comment) oxycodone AdvReac Unknown tight Verified 11/26/23 20:01 chest General Stated Complaint: FlankPain WANDA: 3 Exam Const General: cooperative and no acute distress Resp Effort & Inspection: normal respiratory effort Auscultation: clear to auscultation bilaterally Cardio Rate: regular rate Rhythm: regular rhythm Other: distal pulses intact GI Other: no abdominal bruit or pulsatile mass Back/Spine/Pelvis Back: no CVA tenderness Skin General skin exam: no rashes or lesions noted Neuro Other: dtr's intact to bilateral LE, strength and senation intact, neg babinski, neg slr, ambulatory with steady gait Course Vital Signs Vital signs: Vital Signs Temperature 36.3 C L 11/26/23 19:58 Pulse 77 11/26/23 19:58 Respiratory Rate 16 11/26/23 19:58 Blood Pressure 185/81 H 11/26/23 19:58 Pulse Oximetry 97 11/26/23 19:58 Temperature 36.3 C L 11/26/23 21:57 Temperature Source Skin 11/26/23 21:57 Pulse 68 11/26/23 23:20 Respiratory Rate 12 11/26/23 23:20 Respiratory Effort Normal, Non-Labored 11/26/23 20:04 Blood Pressure 171/68 H 11/26/23 23:20 Blood Pressure Mean 138 11/26/23 21:00 Blood Pressure Position Sitting 11/26/23 21:57 Pulse Oximetry 94 11/26/23 23:20 Oxygen Delivery Method Room Air 11/26/23 23:20 Oxygen Flow Rate 0 11/26/23 23:20 Pain Level 5 11/26/23 23:20 Comment Pain is worse w/ movement (8/10) 11/26/23 21:57 Lab/Test Results Lab/Test Results: Laboratory Tests Range/Units 11/26/23 11/26/23 20:14 20:45 WBC (4.4-10.8) 10^3/uL 9.15 RBC (4.36-5.78) 10^6/uL 4.77 Hgb (13.5-17.5) g/dL 15.0 Hct (40.0-50.0) % 43.8 MCV (80-95) fL 92 MCH (27.0-33.0) pg 31.4 MCHC (32.0-36.0) % 34.2 RDW (11.8-14.1) % 12.3 Plt Count (130-400) 10^3/uL 253 MPV (8.0-11.0) fL 9.1 Immature Gran % % 0.3 Neutrophils % % 65.0 Lymphocytes % % 23.7 Monocytes % % 8.4 Eosinophils % % 1.9 Basophils % % 0.7 Nucleated RBC % (0.0-0.3) % 0.0 Absolute Neutrophils (1.2-6.7) 10^3/uL 5.95 Absolute Lymphocytes (1.2-3.4) 10^3/uL 2.17 Absolute Monocytes (0.1-0.8) 10^3/uL 0.77 Absolute Eosinophils (0.0-0.7) 10^3/uL 0.17 Absolute Basophils (0.0-0.2) 10^3/uL 0.06 Sodium (136-145) mmol/L 140 Potassium (3.5-5.1) mmol/L 4.0 Chloride (98-107) mmol/L 104 Carbon Dioxide (21.0-32.0) mmol/L 28.6 Anion Gap (3-11) mmol/L 7.4 BUN (7-18) mg/dL 17 Creatinine (0.70-1.30) mg/dL 1.0 Est GFR (CKD-EPI 2020) (mL/min/1.73m2) 88.88 Glucose (74-106) mg/dL 103 Calcium (8.5-10.1) mg/dL 8.6 Total Bilirubin (0.2-1.0) mg/dL 0.37 AST (15-37) U/L 21 ALT (16-63) U/L 28 Alkaline Phosphatase (46-116) U/L 71 Total Protein (6.4-8.2) g/dL 7.1 Albumin (3.4-5.0) g/dL 3.5 Lipase (16-77) U/L 40 Urine Color (Yellow) Dark Yellow Urine Clarity (Clear) Sl Cloudy Urine pH (5-8) 7.0 Ur Specific [place] (1.005-1.025) >= 1.030 H Urine Protein (Neg-Trace) mg/dL Negative Urine Ketones (Negative) mg/dL Negative Urine Blood (Negative) Trace-intact H Urine Nitrite (Negative) Negative Urine Bilirubin (Negative) Negative Urine Urobilinogen (Up to 0.2) mg/dL 0.2 Ur Leukocyte Esterase (Negative) Negative Urine RBC (0-2) HPF 0-2 Urine WBC (0-5) HPF Negative Ur Epithelial Cells (Negative) HPF Negative Urine Crystals (Negative) HPF Few Amorphous Urine Bacteria (Negative) HPF Few Urine Casts (Negative) LPF Negative Urine Mucus (Negative) Negative Ur Culture Indicated? No Urine Glucose (Negative) mg/dL Negative Medical Decision Making CT and abdomen and pelvis was ordered for this pt with Left flank pain and multiple comorbidities, CT does not show significant acute abnormality patient was what made aware regarding a possible mass versus inflammation per radiology interpretation and my review, need for outpatient colonoscopy, he does have increased stool volume, he will be placed on laxatives. His blood pressure is elevated he is encouraged to have this rechecked by his primary care physician. Will treat for constipation with senna and MiraLAX at home. Outpatient colonoscopy recommended. post void residual 16, no signs consistent with cauda equina syndrome. suspect combination of constipation and conjunction with back pain. Return precautions reviewed and patient expressed understanding Quality:SDOH Health Related Social Needs: No Data to Display PFSH All Active Problems (Updated 11/26/23 @ 23:10 by CHUCK Mercedes) Abdominal pain (Acute) Shingles (Acute 10/24/19) Colon polyps (Acute) Backache, unspecified (Chronic 09/06/12) Insomnia (Chronic 06/22/13) Post laminectomy syndrome (Chronic 09/16/15) Tobacco use disorder (Chronic 09/06/12) Medical History Chronic pain syndrome (09/06/12) Chronic prescription opiate use (12/03/14) Colon cancer screening Constipation due to opioid therapy (12/03/14) Opioid use agreement exists (07/16/15) Surgical History Foraminectomy H/O colonoscopy 03/13: Tubular adenoma. Spinal cord stimulator (12/12/14) Danie Malin MD REMOVED steroid injection L5-S1 (08/13/14) [facility] Family History Mother No problems noted. Father Substance abuse Grandfather Substance abuse Grandmother Diabetes Stroke Paternal Aunt Diabetes Other Heart disease Social History Smoking/Tobacco Use Status: Current every day Tobacco Type: cigarettes Tobacco: How many years used: 33 Quit status: not considering quitting Smoking risk assessment performed?: Yes Alcohol Intake: current Alcohol Intake frequency: holidays/special occasions only Drug use: Never Substance use type: does not use Adopted: No Housing: house Number of Children: 2 number of grandchildren: 3 Communication Needs: Corrective Lenses Do you need help understanding health information?: Never current occupation: self employed - cleaning business What type of physical activity do you participate in: none Seatbelt use: always Drive intox or ride w/intox inventory associate and driver: No Water heater temp set <120 deg: Yes Working smoke detector in home: Yes Fire extinguisher in home: Yes Carbon monox detector in home: Yes Do you feel safe at home: Yes Do you feel safe in your relationship?: Yes
[2023-11-26] MEDS: Senna TAB 1 TAB PO (23:37)
== END 2023-11-26 23:37 | disposition home or self-care (01) ==
LOC: ER 23:14 → RED 23:37
PROVIDERS: Emergency Provider Physician Assistant
DX: R10.9 Unspecified abdominal pain (principal); K59.00 Constipation, unspecified; I10 Essential (primary) hypertension; F17.210 Nicotine dependence, cigarettes, uncomplicated
CPT/HCPCS: 36415; 80053; 83690; 96374; 99285; J2360; 71046; 74177; 81003; 81015; 85025; 99284; J3490